=== PATIENT | male | born 1955 ===

== ENCOUNTER 2024-03-18 17:25 | Observation (INO) | payer OTHER, MEDICARE ==
[~2024-03-18] VITALS: Ht 182.9 cm; Wt 87.1 kg
[2024-03-18 19:15] LABS: BASOPHILS # (AUTO) 0.05 K/uL (0.00-0.20); BASOPHILS % (AUTO) 0.8 % (0.0-5.0); EOSINOPHILS # (AUTO) 0.34 K/uL (0.00-0.70); EOSINOPHILS % (AUTO) 5.4 % (0.0-8.0); HEMATOCRIT 43.3 % (42-54); IMMATURE GRANULOCYTE ABSOLUTE 0.02 K/uL (0-1); LYMPHOCYTES # (AUTO) 2.3 K/uL (1.0-4.8); LYMPHOCYTES % (AUTO) 36.5 % (21.0-51.0); MEAN CORPUSCULAR HEMOGLOBIN 28.6 pg (27.0-33.0); MEAN CORPUSCULAR VOLUME 86.6 fL (79-99); MONOCYTES # (AUTO) 0.5 K/uL (0.1-1.0); MONOCYTES % (AUTO) 8.6 % (3.0-13.0); NEUTROPHILS # (AUTO) 3.1 K/uL (1.8-7.7); NEUTROPHILS % (AUTO) 48.4 % (40.0-77.0); PLATELET COUNT (AUTO) 259 K/uL (130-400); RED CELL DISTRIBUTION WIDTH 13.4 % (11.0-15.5); WHITE BLOOD COUNT (AUTO) 6.3 K/uL (4.8-10.8)
[2024-03-18 19:24] LABS: CREATININE 1.1 mg/dL (0.5-1.3); POTASSIUM 4.2 mmol/L (3.5-5.1)
[2024-03-18 19:31] LABS: ALBUMIN 3.7 g/dL (3.5-5.0); BILIRUBIN,TOTAL 0.4 mg/dL (0.2-1.0); MAGNESIUM 2.1 mg/dL (1.80-2.40)
[2024-03-18 19:41] LABS: INR 1.04 (0.85-1.15); PROTHROMBIN TIME 11.2 SEC (9.6-11.6)
[2024-03-18 19:42] LABS: PARTIAL THROMBOPLASTIN TIME 30.4 SEC (26.3-35.5)
[2024-03-18 19:45] LABS: B-TYPE NATRIURETIC PEPTIDE 18 pg/mL (0-100)
[2024-03-18] MEDS: MORPHINE 4 MG SYG IVP ONE (19:57)
[2024-03-18] MEDS: ONDANSETRON 4MG INJ IVP ONE (19:57)
[2024-03-18] MEDS ORDERED: MORPHINE 4 MG SYG IV PRN (20:30)
[2024-03-18] MEDS ORDERED: ONDANSETRON 4MG INJ IV PRN (20:30)
[2024-03-18] MEDS ORDERED: acetaMINOPHEN 325 MG TAB PO PRN ×2 (20:30)
[2024-03-18] MEDS: APIXaban 5 MG TABLET PO SCH (21:35)
[2024-03-18 23:45] VITALS: BP 110/57; PULSE 70; RESP 19
[2024-03-19 00:17] LABS: APPEARANCE,URINE CLEAR (CLEAR); BILIRUBIN,URINE NEGATIVE (NEGATIVE); COLOR,URINE COLORLESS (YELLOW); GLUCOSE, URINE (UA) NEGATIVE (NEGATIVE); KETONES,URINE NEGATIVE (NEGATIVE); LEUKOCYTE ESTERASE ,URINE NEGATIVE Leu/uL (NEGATIVE); NITRATE,URINE NEGATIVE (NEGATIVE); OCCULT BLOOD,URINE NEGATIVE (NEGATIVE); PROTEIN,URINE NEGATIVE (NEGATIVE); UROBILINOGEN,URINE 0.2 mg/dL (0.2-1.0)
[2024-03-19 00:19] LABS: ADD UA MICROSCOPIC NO
[2024-03-19] MEDS ORDERED: PANT40GR PO (01:20)
[2024-03-19] MEDS ORDERED: EZET-88 PO (01:20)
[2024-03-19] MEDS ORDERED: QUET100T34 PO (01:20)
[2024-03-19] MEDS ORDERED: APIX5TAB PO (01:20)
[2024-03-19] MEDS ORDERED: METF-446 PO (01:20)
[2024-03-19] MEDS ORDERED: GABA300S3 PO (01:20)
[2024-03-19 04:00] VITALS: BP 122/67; PULSE 54; RESP 19
[2024-03-19 06:18] LABS: BASOPHILS # (AUTO) 0.04 K/uL (0.00-0.20); BASOPHILS % (AUTO) 0.8 % (0.0-5.0); EOSINOPHILS # (AUTO) 0.36 K/uL (0.00-0.70); EOSINOPHILS % (AUTO) 7.4 % (0.0-8.0); HEMATOCRIT 41.8 % (42-54); IMMATURE GRANULOCYTE ABSOLUTE 0.01 K/uL (0-1); LYMPHOCYTES # (AUTO) 2.3 K/uL (1.0-4.8); LYMPHOCYTES % (AUTO) 47.8 % (21.0-51.0); MEAN CORPUSCULAR HEMOGLOBIN 28.8 pg (27.0-33.0); MEAN CORPUSCULAR VOLUME 87.3 fL (79-99); MONOCYTES # (AUTO) 0.5 K/uL (0.1-1.0); MONOCYTES % (AUTO) 10.1 % (3.0-13.0); NEUTROPHILS # (AUTO) 1.6 K/uL (1.8-7.7); NEUTROPHILS % (AUTO) 33.7 % (40.0-77.0); PLATELET COUNT (AUTO) 242 K/uL (130-400); RED BLOOD CELL COUNT(AUTO) 4.79 MIL/uL (4.50-6.20); RED CELL DISTRIBUTION WIDTH 13.6 % (11.0-15.5); WHITE BLOOD COUNT (AUTO) 4.9 K/uL (4.8-10.8)
[2024-03-19 06:31] LABS: POTASSIUM 4.5 mmol/L (3.5-5.1)
[2024-03-19 06:41] LABS: HEMOGLOBIN A1C 10.9 % (4.0-6.0)
[2024-03-19] MEDS: INSULIN humuLIN R 100 UNIT/ML 3ML SQ SCH (07:30)
[2024-03-19 08:00] VITALS: BP 109/84; PULSE 67; RESP 13
[2024-03-19 09:00] VITALS: O2SAT 97
[2024-03-19] MEDS: FAMOTIDINE 20MG TAB PO SCH (09:00)
[2024-03-19 10:00] VITALS: O2SAT 100
[2024-03-19] MEDS ORDERED: POLY17PO52 PO (10:05)
[2024-03-19 11:57] VITALS: BP 118/73; PULSE 57; RESP 14
== END 2024-03-19 15:35 | disposition home or self-care (01) ==
LOC: EDH 17:25 → EDHIP 20:03 → INTOOBSV 20:03 → 3DH 03-19 00:05
PROVIDERS: ADMIT Internal Medicine; ATTEND Internal Medicine
DX: I82.402 Acute embolism and thrombosis of unspecified deep veins of left lower extremity (principal); E11.51 Type 2 diabetes mellitus with diabetic peripheral angiopathy without gangrene; E78.00 Pure hypercholesterolemia, unspecified; F31.9 Bipolar disorder, unspecified; Z79.84 Long term (current) use of oral hypoglycemic drugs; Z86.718 Personal history of other venous thrombosis and embolism; Z88.0 Allergy status to penicillin; Z79.01 Long term (current) use of anticoagulants; Z79.899 Other long term (current) drug therapy; Z98.890 Other specified postprocedural states
CPT/HCPCS: 99284; 83735; 80053; 83880; 85025 ×2; 85610; 85730; 81003; 36415 ×2; 93925; 93005; 83036; 80048; 82948 ×2; G0378 ×5